=== PATIENT | female | born 1935 | race Caucasian/White ===

== ENCOUNTER 2018-05-03 07:07 | Inpatient (IN) | payer MEDICARE, OTHER ==
[~2018-05-03] VITALS: Ht 160 cm; Wt 56.4 kg
[2018-05-03] MEDS ORDERED: ALBUTEROL SULF 2.5 MG/0.5ML(0.5%) NEB SOLN NEB ONE ×2 (07:30→08:15)
[2018-05-03] MEDS ORDERED: IPRATROPIUM BROM 0.5 MG/2.5ML INH SOL NEB ONE ×2 (07:30→08:15)
[2018-05-03] MEDS ORDERED: methylPREDNISolone SOD SUCC 125 MG/2 ML VL IV ONE ×2 (07:30→08:15)
[2018-05-03 08:20] LABS: Basophils # (auto) 0 uL; Basophils % (auto) 0.1 % (0.0-2.0); Eosinophils # (auto) 0.1 uL; Eosinophils % (auto) 0.6 % (0.0-7.0); Hematocrit 32.8 % (36.0-46.0); Hemoglobin 10.6 g/dL (12.2-16.2); Lymphocytes # (auto) 0.8 uL; Lymphocytes % (auto) 4.3 % (10.0-50.0); Mean Corpuscular Hemoglobin 29.1 pg (28.0-32.0); Mean Corpuscular Hgb Conc. 32.4 g/dL (32.0-36.0); Mean Corpuscular Volume 89.7 fL (80.0-100.0); Monocytes % (auto) 5.7 % (0.0-12.0); Neutrophils # (auto) 15.9 uL; Neutrophils % (auto) 89.3 % (37.0-80.0); Platelet Count (auto) 392 10^3/uL (140-450); Red Blood Cells 3.66 10^6/uL (4.0-5.20); Red Cell Distribution Width 15.5 % (11.8-14.3); White Blood Cell 17.8 10^3/uL (4.4-10.8)
[2018-05-03] MEDS ORDERED: methylPREDNISolone SOD SUCC 125 MG/2 ML VL ONE (08:33)
[2018-05-03 08:43] LABS: Albumin 2.2 g/dL (3.4-5.0); BUN/Creatinine Ratio 16.1; Bilirubin, Total 0.5 mg/dL (0.2-1.0); Calcium 8.8 mg/dL (8.5-10.1); Potassium 3.4 mmol/L (3.5-5.1); Total Protein 6.8 g/dL (6.4-8.2)
[2018-05-03] MEDS ORDERED: IPRATROPIUM BROM 0.5 MG/2.5ML INH SOL ONE (09:00)
[2018-05-03] MEDS ORDERED: ALBUTEROL SULF 2.5 MG/0.5ML(0.5%) NEB SOLN ONE (09:00)
[2018-05-03] MEDS ORDERED: ENOXAPARIN SOD 60 MG/0.6 ML SYRINGE SC ONE (10:00)
[2018-05-03] MEDS ORDERED: cefTRIAXone 1GM/10ml IVPUSH 10 ML IV ONE (10:00)
[2018-05-03] MEDS ORDERED: ASPirin 81 mg TAB PO ONE (10:00)
[2018-05-03] MEDS ORDERED: AZITHROMYCIN 500MG/ 250ML 250 ML IV ONE (10:00)
[2018-05-03] MEDS ORDERED: MORPHINE SULF(PF) 0.5MG/ML 10ML VIAL IV PRN (12:00)
[2018-05-03] MEDS ORDERED: NITROGLYCERIN 0.4 MG SL TAB SL PRN (12:00)
[2018-05-03] MEDS ORDERED: VANCOMYCIN PER PHARMACY 0 MG IV SCH (12:00)
[2018-05-03] MEDS ORDERED: PIPERACILLIN-TAZOB 3.375GM 100 ML IV SCH (12:00)
[2018-05-03] MEDS: PANTOPRAZOLE 40 MG TAB PO SCH (12:23)
[2018-05-03] MEDS: IPRATROPIUM BROM 0.5 MG/2.5ML INH SOL NEB SCH ×2 (12:30→18:19)
[2018-05-03] MEDS: ALBUTEROL SULF 2.5 MG/0.5ML(0.5%) NEB SOLN NEB SCH ×2 (12:30→18:19)
[2018-05-03] MEDS: VANCOMYCIN 1GM/250ML 250 ML IV SCH (13:50)
[2018-05-03] MEDS: MEROPENEM 1gm/20ml IVPUSH 20 ML IV SCH ×2 (14:00→21:50)
[2018-05-03 21:14] VITALS: BP 103/84
[2018-05-03] MEDS: ATORVASTATIN 20 MG TAB PO SCH (22:00)
[2018-05-04] MEDS: IPRATROPIUM BROM 0.5 MG/2.5ML INH SOL NEB SCH ×4 (00:15→17:49)
[2018-05-04] MEDS: ALBUTEROL SULF 2.5 MG/0.5ML(0.5%) NEB SOLN NEB SCH ×4 (00:15→17:49)
[2018-05-04] MEDS: LORazepam 2MG/ML-1ML VIAL IV PRN ×2 (02:45→16:14)
[2018-05-04 05:10] LABS: Basophils # (auto) 0 uL; Basophils % (auto) 0.1 % (0.0-2.0); Eosinophils # (auto) 0 uL; Eosinophils % (auto) 0.1 % (0.0-7.0); Hematocrit 32.1 % (36.0-46.0); Hemoglobin 10.4 g/dL (12.2-16.2); Lymphocytes # (auto) 0.8 uL; Lymphocytes % (auto) 5.8 % (10.0-50.0); Mean Corpuscular Hemoglobin 29.1 pg (28.0-32.0); Mean Corpuscular Hgb Conc. 32.3 g/dL (32.0-36.0); Monocytes % (auto) 7.4 % (0.0-12.0); Neutrophils # (auto) 12.1 uL; Neutrophils % (auto) 86.6 % (37.0-80.0); Platelet Count (auto) 419 10^3/uL (140-450); Red Blood Cells 3.57 10^6/uL (4.0-5.20); Red Cell Distribution Width 15.4 % (11.8-14.3)
[2018-05-04 05:22] LABS: BUN/Creatinine Ratio 25.4; Calcium 8.7 mg/dL (8.5-10.1); Potassium 4.1 mmol/L (3.5-5.1)
[2018-05-04 05:26] LABS: INR 0.98 (0.9-1.15); Partial Thromboplastin Time 30.1 sec (23.78-33.04); Prothrombin Time 10.5 sec (9.27-12.13)
[2018-05-04] MEDS: MEROPENEM 1gm/20ml IVPUSH 20 ML IV SCH ×3 (06:20→21:31)
[2018-05-04] MEDS ORDERED: VANCOMYCIN 1GM/250ML 250 ML IV SCH (10:00)
[2018-05-04] MEDS: PANTOPRAZOLE 40 MG TAB PO SCH (10:09)
[2018-05-04] MEDS: ASPirin 81 mg TAB PO SCH (10:09)
[2018-05-04] MEDS: ENOXAPARIN SOD 40 MG/0.4 ML SYRINGE SC SCH (10:10)
[2018-05-04] MEDS: VANCOMYCIN 1GM/250ML 250 ML IV SCH (13:22)
[2018-05-04] MEDS ORDERED: PROMETHAZINE W/CODEINE 5 ML ORAL SYRUP PO PRN (14:45)
[2018-05-04] MEDS ORDERED: FUROSEMIDE 40 MG TAB PO ONE (14:45)
[2018-05-04] MEDS ORDERED: POTASSIUM CHL 20 Meq TABLET PO ONE (14:45)
[2018-05-04] MEDS ORDERED: ONDANSETRON HCL 4 MG/2 ML VIAL IV PRN ×2 (16:45→17:00)
[2018-05-04] MEDS ORDERED: ONDANSETRON HCL 4 MG/2 ML VIAL ONE (16:48)
[2018-05-04 17:00] VITALS: BP 156/94
[2018-05-04] MEDS ORDERED: methylPREDNISolone SOD SUCC 40 MG/ML VL IV ONE (18:45)
[2018-05-04 19:52] VITALS: BP 110/70
[2018-05-04] MEDS: ATORVASTATIN 20 MG TAB PO SCH (21:31)
[2018-05-04] MEDS: TEMAZEPAM 15 MG CAP PO PRN (22:48)
[2018-05-04] MEDS ORDERED: ONDA4TAB5 PO (23:00)
[2018-05-04] MEDS ORDERED: SUMA50TA2 PO (23:00)
[2018-05-04] MEDS ORDERED: VERA1TAB9 PO (23:00)
[2018-05-04] MEDS ORDERED: ALBU2TAB4 PO (23:00)
[2018-05-04] MEDS ORDERED: LACT10SO3 PO (23:00)
[2018-05-04] MEDS ORDERED: PRE5T PO (23:02)
[2018-05-04] MEDS ORDERED: BUP100T PO (23:02)
[2018-05-04] MEDS ORDERED: OXYB15TA12 PO (23:04)
[2018-05-04] MEDS ORDERED: ALEN70TA2 PO (23:04)
[2018-05-04] MEDS ORDERED: ATOR10TA PO (23:04)
[2018-05-04] MEDS ORDERED: FAM20T PO (23:04)
[2018-05-04] MEDS ORDERED: FLUT250M2 INH (23:04)
[2018-05-04] MEDS ORDERED: DIPH25CA66 PO (23:06)
[2018-05-04] MEDS ORDERED: BACL10TA PO (23:06)
[2018-05-05] VITALS (7 sets, daily range): BP systolic 87–109; BP diastolic 51–84
[2018-05-05] MEDS: methylPREDNISolone SOD SUCC 40 MG/ML VL IV SCH ×4 (00:05→22:07)
[2018-05-05 05:48] LABS: Basophils # (auto) 0 uL; Basophils % (auto) 0.1 % (0.0-2.0); Eosinophils # (auto) 0 uL; Hematocrit 33.3 % (36.0-46.0); Lymphocytes # (auto) 0.6 uL; Lymphocytes % (auto) 5.1 % (10.0-50.0); Mean Corpuscular Hemoglobin 29.5 pg (28.0-32.0); Mean Corpuscular Hgb Conc. 33.1 g/dL (32.0-36.0); Mean Corpuscular Volume 89.2 fL (80.0-100.0); Monocytes # (auto) 0.2 uL; Monocytes % (auto) 1.6 % (0.0-12.0); Neutrophils # (auto) 10.8 uL; Neutrophils % (auto) 93.2 % (37.0-80.0); Platelet Count (auto) 433 10^3/uL (140-450); Red Blood Cells 3.73 10^6/uL (4.0-5.20); Red Cell Distribution Width 15.6 % (11.8-14.3); White Blood Cell 11.6 10^3/uL (4.4-10.8)
[2018-05-05] MEDS: IPRATROPIUM BROM 0.5 MG/2.5ML INH SOL NEB SCH ×4 (05:54→19:24)
[2018-05-05] MEDS: ALBUTEROL SULF 2.5 MG/0.5ML(0.5%) NEB SOLN NEB SCH ×4 (05:55→19:24)
[2018-05-05] MEDS: MEROPENEM 1gm/20ml IVPUSH 20 ML IV SCH ×3 (06:01→22:07)
[2018-05-05 06:07] LABS: BUN/Creatinine Ratio 18.2; Calcium 8.9 mg/dL (8.5-10.1); Potassium 4.3 mmol/L (3.5-5.1)
[2018-05-05] MEDS: FUROSEMIDE 40 MG TAB PO SCH ×2 (10:00→10:59)
[2018-05-05] MEDS: ENOXAPARIN SOD 40 MG/0.4 ML SYRINGE SC SCH (10:09)
[2018-05-05] MEDS: PANTOPRAZOLE 40 MG TAB PO SCH (10:09)
[2018-05-05] MEDS: ASPirin 81 mg TAB PO SCH (10:09)
[2018-05-05] MEDS: POTASSIUM CHL 20 Meq TABLET PO SCH (10:10)
[2018-05-05] MEDS: VANCOMYCIN 1GM/250ML 250 ML IV SCH (13:24)
[2018-05-05] MEDS: buPROPion HCL 100 MG TAB PO SCH (18:48)
[2018-05-05] MEDS: ATORVASTATIN 20 MG TAB PO SCH (22:08)
[2018-05-05] MEDS: TEMAZEPAM 15 MG CAP PO PRN (22:09)
[2018-05-06 05:00] VITALS: BP 132/72
[2018-05-06 06:07] LABS: Basophils # (auto) 0 uL; Basophils % (auto) 0.1 % (0.0-2.0); Eosinophils # (auto) 0 uL; Hematocrit 35.2 % (36.0-46.0); Hemoglobin 11.5 g/dL (12.2-16.2); Lymphocytes # (auto) 0.7 uL; Lymphocytes % (auto) 4.5 % (10.0-50.0); Mean Corpuscular Hemoglobin 29.2 pg (28.0-32.0); Mean Corpuscular Hgb Conc. 32.6 g/dL (32.0-36.0); Mean Corpuscular Volume 89.5 fL (80.0-100.0); Monocytes # (auto) 0.5 uL; Monocytes % (auto) 3.1 % (0.0-12.0); Neutrophils # (auto) 13.8 uL; Neutrophils % (auto) 92.3 % (37.0-80.0); Platelet Count (auto) 436 10^3/uL (140-450); Red Blood Cells 3.93 10^6/uL (4.0-5.20); Red Cell Distribution Width 15.5 % (11.8-14.3)
[2018-05-06 06:15] LABS: BUN/Creatinine Ratio 35.8; Calcium 9.1 mg/dL (8.5-10.1)
[2018-05-06] MEDS: buPROPion HCL 100 MG TAB PO SCH ×2 (06:22→18:53)
[2018-05-06] MEDS: MEROPENEM 1gm/20ml IVPUSH 20 ML IV SCH (06:22)
[2018-05-06] MEDS: methylPREDNISolone SOD SUCC 40 MG/ML VL IV SCH ×2 (06:22→22:18)
[2018-05-06] MEDS: ALBUTEROL SULF 2.5 MG/0.5ML(0.5%) NEB SOLN NEB SCH ×4 (06:50→19:00)
[2018-05-06] MEDS: IPRATROPIUM BROM 0.5 MG/2.5ML INH SOL NEB SCH ×4 (06:51→19:00)
[2018-05-06 09:00] VITALS: BP 113/78
[2018-05-06] MEDS: ENOXAPARIN SOD 40 MG/0.4 ML SYRINGE SC SCH (09:39)
[2018-05-06] MEDS: PANTOPRAZOLE 40 MG TAB PO SCH (09:41)
[2018-05-06] MEDS: ASPirin 81 mg TAB PO SCH (09:41)
[2018-05-06] MEDS: POTASSIUM CHL 20 Meq TABLET PO SCH (09:41)
[2018-05-06] MEDS: FUROSEMIDE 40 MG TAB PO SCH (09:41)
[2018-05-06] MEDS: VANCOMYCIN 1GM/250ML 250 ML IV SCH (12:44)
[2018-05-06 13:00] VITALS: BP 126/82
[2018-05-06] MEDS: cefTAZidime 1 GM in SODIUM CHL 0.9% 50 ML IV SCH ×2 (15:20→22:18)
[2018-05-06] MEDS ORDERED: SENNA 8.6 MG TAB PO ONE (15:30)
[2018-05-06 17:00] VITALS: BP 112/85
[2018-05-06 21:36] VITALS: BP 118/85
[2018-05-06] MEDS: ATORVASTATIN 20 MG TAB PO SCH (22:18)
[2018-05-06] MEDS: TEMAZEPAM 15 MG CAP PO PRN (22:31)
[2018-05-07] MEDS: VANCOMYCIN 1GM/250ML 250 ML IV SCH ×2 (01:30→12:45)
[2018-05-07 01:31] VITALS: BP 118/85
[2018-05-07 04:46] VITALS: BP 106/69
[2018-05-07 05:50] LABS: Basophils # (auto) 0 uL; Eosinophils # (auto) 0 uL; Hematocrit 33.3 % (36.0-46.0); Hemoglobin 10.7 g/dL (12.2-16.2); Lymphocytes # (auto) 0.7 uL; Lymphocytes % (auto) 5.2 % (10.0-50.0); Mean Corpuscular Hemoglobin 29.2 pg (28.0-32.0); Mean Corpuscular Hgb Conc. 32.1 g/dL (32.0-36.0); Mean Corpuscular Volume 90.8 fL (80.0-100.0); Monocytes # (auto) 0.4 uL; Monocytes % (auto) 2.8 % (0.0-12.0); Neutrophils # (auto) 11.9 uL; Platelet Count (auto) 442 10^3/uL (140-450); Red Blood Cells 3.67 10^6/uL (4.0-5.20); Red Cell Distribution Width 15.7 % (11.8-14.3)
[2018-05-07 06:06] LABS: Calcium 8.7 mg/dL (8.5-10.1); Potassium 4.5 mmol/L (3.5-5.1)
[2018-05-07] MEDS: buPROPion HCL 100 MG TAB PO SCH ×2 (06:31→18:16)
[2018-05-07] MEDS: cefTAZidime 1 GM in SODIUM CHL 0.9% 50 ML IV SCH ×3 (06:31→21:53)
[2018-05-07] MEDS: IPRATROPIUM BROM 0.5 MG/2.5ML INH SOL NEB SCH ×3 (07:01→11:48)
[2018-05-07] MEDS: ALBUTEROL SULF 2.5 MG/0.5ML(0.5%) NEB SOLN NEB SCH ×3 (07:01→11:48)
[2018-05-07 09:00] VITALS: BP 133/49
[2018-05-07] MEDS: methylPREDNISolone SOD SUCC 40 MG/ML VL IV SCH ×2 (09:25→21:53)
[2018-05-07] MEDS: POTASSIUM CHL 20 Meq TABLET PO SCH (09:26)
[2018-05-07] MEDS: FUROSEMIDE 40 MG TAB PO SCH (09:26)
[2018-05-07] MEDS: ASPirin 81 mg TAB PO SCH (09:26)
[2018-05-07] MEDS: ENOXAPARIN SOD 40 MG/0.4 ML SYRINGE SC SCH (09:26)
[2018-05-07] MEDS: PANTOPRAZOLE 40 MG TAB PO SCH (09:26)
[2018-05-07 13:00] VITALS: BP 114/91
[2018-05-07 17:00] VITALS: BP 110/75
[2018-05-07 21:47] VITALS: BP 123/81
[2018-05-07] MEDS: ATORVASTATIN 20 MG TAB PO SCH (21:54)
[2018-05-07] MEDS: TEMAZEPAM 15 MG CAP PO PRN (22:59)
[2018-05-08] MEDS: IPRATROPIUM BROM 0.5 MG/2.5ML INH SOL NEB SCH ×6 (00:32→23:34)
[2018-05-08] MEDS: ALBUTEROL SULF 2.5 MG/0.5ML(0.5%) NEB SOLN NEB SCH ×6 (00:32→23:34)
[2018-05-08] MEDS: VANCOMYCIN 1GM/250ML 250 ML IV SCH (01:00)
[2018-05-08 05:12] VITALS: BP 109/68
[2018-05-08] MEDS: buPROPion HCL 100 MG TAB PO SCH ×2 (06:21→18:18)
[2018-05-08] MEDS: cefTAZidime 1 GM in SODIUM CHL 0.9% 50 ML IV SCH ×3 (06:21→23:11)
[2018-05-08 08:58] VITALS: BP 118/75
[2018-05-08] MEDS: methylPREDNISolone SOD SUCC 40 MG/ML VL IV SCH ×2 (09:22→23:12)
[2018-05-08] MEDS: PANTOPRAZOLE 40 MG TAB PO SCH (09:23)
[2018-05-08] MEDS: ASPirin 81 mg TAB PO SCH (09:23)
[2018-05-08] MEDS: FUROSEMIDE 40 MG TAB PO SCH (09:23)
[2018-05-08] MEDS: POTASSIUM CHL 20 Meq TABLET PO SCH (09:23)
[2018-05-08] MEDS: ENOXAPARIN SOD 40 MG/0.4 ML SYRINGE SC SCH (09:57)
[2018-05-08 13:19] VITALS: BP 133/77
[2018-05-08] MEDS ORDERED: VANCOMYCIN 1GM/250ML 250 ML IV SCH (16:00)
[2018-05-08 17:14] VITALS: BP 117/83
[2018-05-08 21:55] VITALS: BP 124/80
[2018-05-08] MEDS ORDERED: CALCIUM CARB 500 MG CHEW TAB PO PRN (22:30)
[2018-05-08] MEDS ORDERED: ALBUTEROL SULF 2.5 MG/0.5ML(0.5%) NEB SOLN NEB PRN (22:30)
[2018-05-08] MEDS: ATORVASTATIN 20 MG TAB PO SCH (23:12)
[2018-05-08] MEDS: TEMAZEPAM 15 MG CAP PO PRN (23:12)
[2018-05-09 05:25] VITALS: BP 98/68
[2018-05-09 05:49] LABS: Basophils # (auto) 0 uL; Basophils % (auto) 0.1 % (0.0-2.0); Eosinophils # (auto) 0 uL; Eosinophils % (auto) 0.1 % (0.0-7.0); Hematocrit 35.3 % (36.0-46.0); Hemoglobin 11.3 g/dL (12.2-16.2); Lymphocytes # (auto) 0.8 uL; Lymphocytes % (auto) 5.1 % (10.0-50.0); Mean Corpuscular Hemoglobin 28.5 pg (28.0-32.0); Mean Corpuscular Hgb Conc. 31.9 g/dL (32.0-36.0); Mean Corpuscular Volume 89.4 fL (80.0-100.0); Monocytes # (auto) 0.4 uL; Monocytes % (auto) 2.6 % (0.0-12.0); Neutrophils # (auto) 14.7 uL; Neutrophils % (auto) 92.1 % (37.0-80.0); Platelet Count (auto) 445 10^3/uL (140-450); Red Blood Cells 3.95 10^6/uL (4.0-5.20); Red Cell Distribution Width 15.8 % (11.8-14.3); White Blood Cell 15.9 10^3/uL (4.4-10.8)
[2018-05-09] MEDS: IPRATROPIUM BROM 0.5 MG/2.5ML INH SOL NEB SCH ×5 (06:02→18:49)
[2018-05-09] MEDS: ALBUTEROL SULF 2.5 MG/0.5ML(0.5%) NEB SOLN NEB SCH ×5 (06:03→18:49)
[2018-05-09] MEDS: cefTAZidime 1 GM in SODIUM CHL 0.9% 50 ML IV SCH (06:33)
[2018-05-09] MEDS: buPROPion HCL 100 MG TAB PO SCH ×2 (06:33→22:33)
[2018-05-09 06:35] LABS: BUN/Creatinine Ratio 36.5; Calcium 8.8 mg/dL (8.5-10.1); Potassium 4.3 mmol/L (3.5-5.1)
[2018-05-09 08:48] VITALS: BP 122/66
[2018-05-09] MEDS: ASPirin 81 mg TAB PO SCH (10:10)
[2018-05-09] MEDS: methylPREDNISolone SOD SUCC 40 MG/ML VL IV SCH (10:10)
[2018-05-09] MEDS: PANTOPRAZOLE 40 MG TAB PO SCH (10:10)
[2018-05-09] MEDS: FUROSEMIDE 40 MG TAB PO SCH (10:10)
[2018-05-09] MEDS: POTASSIUM CHL 20 Meq TABLET PO SCH (10:11)
[2018-05-09] MEDS: ENOXAPARIN SOD 40 MG/0.4 ML SYRINGE SC SCH (10:11)
[2018-05-09] MEDS ORDERED: CIPROFLOXACIN HCL 500 MG TAB PO SCH (12:15)
[2018-05-09 13:00] VITALS: BP 129/88
[2018-05-09] MEDS ORDERED: VANCOMYCIN 1GM/250ML 250 ML IV SCH (16:00)
[2018-05-09] MEDS ORDERED: VANCOMYCIN 750 MG in D5W 5% 250 ML IV SCH (16:00)
[2018-05-09 17:16] VITALS: BP 112/80
[2018-05-09 21:38] VITALS: BP 139/93
[2018-05-09] MEDS: TEMAZEPAM 15 MG CAP PO PRN (22:34)
[2018-05-09] MEDS: ATORVASTATIN 20 MG TAB PO SCH (22:34)
[2018-05-10 02:49] VITALS: BP 139/93
[2018-05-10 04:59] VITALS: BP 134/75
[2018-05-10] MEDS: ALBUTEROL SULF 2.5 MG/0.5ML(0.5%) NEB SOLN NEB SCH ×2 (06:30→14:03)
[2018-05-10] MEDS: IPRATROPIUM BROM 0.5 MG/2.5ML INH SOL NEB SCH ×2 (06:30→14:03)
[2018-05-10] MEDS: buPROPion HCL 100 MG TAB PO SCH (06:48)
[2018-05-10 07:33] LABS: Hemoglobin 11.5 g/dL (12.2-16.2); Red Cell Distribution Width 15.9 % (11.8-14.3)
[2018-05-10 07:37] LABS: Hematocrit 35.1 % (36.0-46.0); Mean Corpuscular Hemoglobin 29.3 pg (28.0-32.0); Mean Corpuscular Hgb Conc. 32.7 g/dL (32.0-36.0); Mean Corpuscular Volume 89.5 fL (80.0-100.0); Platelet Count (auto) 462 10^3/uL (140-450); Red Blood Cells 3.92 10^6/uL (4.0-5.20); White Blood Cell 15.8 10^3/uL (4.4-10.8)
[2018-05-10 07:48] LABS: Band Neutrophils % (manual) 0; Basophils % (manual) 0 (0.0-2.0); Blast Cells 0; Metamyelocytes % 0; Myelocytes % 0; Promyelocytes % 0; Reactive Lymphocytes 0
[2018-05-10 07:53] LABS: Albumin 2.4 g/dL (3.4-5.0); BUN/Creatinine Ratio 41.5; Bilirubin, Total 0.3 mg/dL (0.2-1.0); Calcium 9.1 mg/dL (8.5-10.1); Potassium 3.2 mmol/L (3.5-5.1); Total Protein 6.3 g/dL (6.4-8.2)
[2018-05-10 08:32] VITALS: BP 105/73
[2018-05-10 08:52] LABS: Eosinophils % (manual) 2 (0-7); Lymphocytes % (manual) 17 (10.0-50.0); Monocytes % (manual) 11 (0-12)
[2018-05-10] MEDS: PANTOPRAZOLE 40 MG TAB PO SCH (09:33)
[2018-05-10] MEDS: POTASSIUM CHL 20 Meq TABLET PO SCH (09:33)
[2018-05-10] MEDS: FUROSEMIDE 40 MG TAB PO SCH (09:34)
[2018-05-10] MEDS: ASPirin 81 mg TAB PO SCH (09:42)
[2018-05-10] MEDS ORDERED: predniSONE 20 MG TAB PO SCH (10:00)
[2018-05-10] MEDS: ENOXAPARIN SOD 40 MG/0.4 ML SYRINGE SC SCH (12:08)
[2018-05-10 13:01] VITALS: BP 123/88
[2018-05-10] MEDS ORDERED: PRO-STAT 64 30ML PO SCH (18:00)
== END 2018-05-10 15:38 | disposition hospice, home (50) | DRG 871 ==
LOC: ER 07:07 → EDBD 07:07 → TELE 07:08 → DOU IN ICU 05-04 17:17 → TELE-WESTW 05-05 17:40
PROVIDERS: ADMIT Internal Medicine; ATTEND Internal Medicine
DX: A41.9 Sepsis, unspecified organism (principal); I21.4 Non-ST elevation (NSTEMI) myocardial infarction; J18.9 Pneumonia, unspecified organism; E43 Unspecified severe protein-calorie malnutrition; J96.20 Acute and chronic respiratory failure, unspecified whether with hypoxia or hypercapnia; J47.0 Bronchiectasis with acute lower respiratory infection; E87.6 Hypokalemia; I44.7 Left bundle-branch block, unspecified; J84.10 Pulmonary fibrosis, unspecified; Z66 Do not resuscitate; F41.9 Anxiety disorder, unspecified; G43.909 Migraine, unspecified, not intractable, without status migrainosus; Z93.3 Colostomy status; Z79.899 Other long term (current) drug therapy; Z91.041 Radiographic dye allergy status; Z79.82 Long term (current) use of aspirin; Z68.22 Body mass index [BMI] 22.0-22.9, adult
CPT/HCPCS: 36415; 36600; 71045; 71250; 80048; 80053; 80202; 82565; 82805; 83605; 83615; 83880; 84484; 85007; 85025; 85027; 85610; 85730; 87040; 87077; 87081; 87186; 93005; 93306; 94640; 94761; 96365; 96375; 96379; J2405; J2543

== ENCOUNTER 2018-05-15 00:01 | Emergency (ER) | payer OTHER ==
[~2018-05-15] VITALS: Ht 172.7 cm; Wt 65.8 kg
[~2018-05-15 00:01] MED LIST: ALBU2TAB4 PO; ALEN70TA2 PO; ATOR10TA PO; BACL10TA PO; BUP100T PO; DIPH25CA66 PO; FAM20T PO; FLUT250M2 INH; LACT10SO3 PO; ONDA4TAB5 PO; OXYB15TA12 PO; PRE5T PO; SUMA50TA2 PO; VERA1TAB9 PO
[2018-05-15 01:21] LABS: Basophils # (auto) 0 uL; Basophils % (auto) 0.2 % (0.0-2.0); Eosinophils # (auto) 0.2 uL; Eosinophils % (auto) 1.9 % (0.0-7.0); Hematocrit 37.3 % (36.0-46.0); Lymphocytes # (auto) 1.5 uL; Lymphocytes % (auto) 11.7 % (10.0-50.0); Mean Corpuscular Hemoglobin 28.6 pg (28.0-32.0); Mean Corpuscular Hgb Conc. 32.1 g/dL (32.0-36.0); Monocytes # (auto) 1.2 uL; Monocytes % (auto) 9.2 % (0.0-12.0); Neutrophils # (auto) 9.7 uL; Nucleated Red Blood Cells % 0.1 %; Platelet Count (auto) 380 10^3/uL (140-450); Red Blood Cells 4.19 10^6/uL (4.0-5.20); Red Cell Distribution Width 15.8 % (11.8-14.3); White Blood Cell 12.6 10^3/uL (4.4-10.8)
[2018-05-15 01:32] LABS: Albumin 2.7 g/dL (3.4-5.0); Calcium 9.3 mg/dL (8.5-10.1)
[2018-05-15 01:36] LABS: Potassium 2.9 mmol/L (3.5-5.1)
[2018-05-15 01:37] LABS: Bilirubin, Total 0.5 mg/dL (0.2-1.0); Total Protein 6.6 g/dL (6.4-8.2)
[2018-05-15 01:45] LABS: BUN/Creatinine Ratio 24.4
[2018-05-15] MEDS ORDERED: POTASSIUM CHL 10% (20 MEQ/15ML) 15ml ORAL SOLN PO ONE (02:00)
[2018-05-15] MEDS: SODIUM CHLORIDE 0.9% 1,000 ML IV ONE ×2 (02:30→03:21)
[2018-05-15] MEDS ORDERED: ASPirin 81 mg TAB PO ONE (02:30)
[2018-05-15 03:37] LABS: INR 0.98 (0.9-1.15); Partial Thromboplastin Time 23.5 sec (23.78-33.04); Prothrombin Time 10.5 sec (9.27-12.13)
[2018-05-15 06:05] VITALS: BP 132/78
== END 2018-05-15 03:47 | disposition home or self-care (01) ==
LOC: ER 00:01 → EDBD 00:01 → ER 03:47
DX: R07.9 Chest pain, unspecified (principal); J84.10 Pulmonary fibrosis, unspecified; Z88.0 Allergy status to penicillin
CPT/HCPCS: 36415; 71045; 80053; 83735; 83880; 84484; 85025; 85379; 85610; 85730; 93005

== ENCOUNTER 2018-10-15 12:40 | Emergency (ER) | payer OTHER ==
[~2018-10-15] VITALS: Ht 160 cm; Wt 52.2 kg
[2018-10-15 12:53] VITALS: BP 131/92
[2018-10-15 13:38] LABS: Hematocrit 38.2 % (36.0-46.0); Hemoglobin 12.5 g/dL (12.2-16.2); Mean Corpuscular Hemoglobin 30.9 pg (28.0-32.0); Mean Corpuscular Hgb Conc. 32.8 g/dL (32.0-36.0); Mean Corpuscular Volume 94.1 fL (80.0-100.0); Platelet Count (auto) 297 10^3/uL (140-450); Red Blood Cells 4.06 10^6/uL (4.0-5.20); Red Cell Distribution Width 14.3 % (11.8-14.3); White Blood Cell 11.5 10^3/uL (4.4-10.8)
[2018-10-15 13:42] LABS: Basophils % (manual) 0 (0.0-2.0); Blast Cells 0; Eosinophils % (manual) 0 (0-7); Metamyelocytes % 0; Myelocytes % 0; Promyelocytes % 0; Reactive Lymphocytes 0
[2018-10-15 13:49] LABS: Alanine Aminotransferase 24 U/L (13-56); Albumin 3.5 g/dL (3.4-5.0); Anion Gap 3 (5-15); Aspartate Aminotransferase 21 U/L (15-37); Blood Urea Nitrogen 22 mg/dL (7-18); Calcium 9.2 mg/dL (8.5-10.1); Carbon Dioxide 32 mmol/L (21-32); Chloride 106 mmol/L (98-107); Glucose 128 mg/dL (74-106); Magnesium 2.4 mg/dL (1.6-2.6); Potassium 3.8 mmol/L (3.5-5.1); Sodium 141 mmol/L (136-145)
[2018-10-15 13:50] LABS: INR 0.9 (0.9-1.15); Partial Thromboplastin Time 23.3 sec (23.78-33.04); Prothrombin Time 9.7 sec (9.27-12.13)
[2018-10-15 13:55] LABS: Alkaline Phosphatase 49 U/L (45-117); BUN/Creatinine Ratio 20.2; Bilirubin, Total 0.3 mg/dL (0.2-1.0); GFR African American 62 mL/min; GFR Non-African American 51 mL/min; Total Protein 7.2 g/dL (6.4-8.2)
[2018-10-15 14:58] LABS: Band Neutrophils % (manual) 3; Lymphocytes % (manual) 1 (10.0-50.0); Monocytes % (manual) 1 (0-12)
[2018-10-15 15:40] LABS: Urine Bacteria NONE SEEN /hpf (None Seen); Urine Blood Negative /uL (Negative); Urine Hyaline Cast FEW /lpf (0 - 2); Urine Specific Gravity 1.011 (1.001-1.035); Urine WBC <1 /hpf (0 - 5)
== END 2018-10-15 16:53 | disposition home or self-care (01) ==
LOC: EDBD 12:40 → ER 12:43
DX: J84.9 Interstitial pulmonary disease, unspecified (principal); I12.9 Hypertensive chronic kidney disease with stage 1 through stage 4 chronic kidney disease, or unspecified chronic kidney disease; E11.22 Type 2 diabetes mellitus with diabetic chronic kidney disease; N18.3 Chronic kidney disease, stage 3 (moderate); E78.5 Hyperlipidemia, unspecified; Z79.899 Other long term (current) drug therapy; Z88.0 Allergy status to penicillin; Z91.041 Radiographic dye allergy status
CPT/HCPCS: 36415; 71045; 80053; 81001; 83735; 83880; 84443; 84484; 85007; 85027; 85610; 85730; 93005; 94761

== ENCOUNTER 2020-04-15 15:12 | Emergency (ER) | payer OTHER ==
[~2020-04-15] VITALS: Ht 160 cm; Wt 56.7 kg
[~2020-04-15 15:12] MED LIST changes: +ONDA-144 PO; -ONDA4TAB5 PO; +VERA120T3 PO; -VERA1TAB9 PO
[2020-04-15] MEDS ORDERED: SODIUM CHLORIDE 0.9% 1,000 ML IV ONE (15:30)
[2020-04-15 15:53] VITALS: BP 121/95
[2020-04-15] MEDS ORDERED: DOCUSATE SOD 100 MG CAP PO ONE (17:00)
== END 2020-04-15 17:18 | disposition home or self-care (01) ==
LOC: ER 15:12
DX: J18.9 Pneumonia, unspecified organism (principal); K59.00 Constipation, unspecified; R10.84 Generalized abdominal pain; E78.5 Hyperlipidemia, unspecified; I10 Essential (primary) hypertension; Z88.0 Allergy status to penicillin
CPT/HCPCS: 71045; 74176

== ENCOUNTER 2020-09-14 20:22 | Emergency (ER) | payer OTHER ==
[~2020-09-14] VITALS: Ht 157.5 cm; Wt 56.7 kg
[~2020-09-14 20:22] MED LIST changes: -FAM20T PO; +FAMO20TA10 PO
[2020-09-14 22:42] LABS: Urine Bacteria NONE SEEN /hpf (None Seen); Urine Blood Negative /uL (Negative); Urine WBC 4 /hpf (0 - 5)
[2020-09-14 23:04] LABS: Alcohol, Urine < 3.0 mg/dL (0-10); Amphetamine Screen, Urine NEGATIVE (NEGATIVE); Barbiturate Scree,Urine NEGATIVE (NEGATIVE); Benzodiazephine Screen, Urine POSITIVE (NEGATIVE); Cannabinoid Screen, Urine NEGATIVE (NEGATIVE); Cocaine Screen, Urine NEGATIVE (NEGATIVE); Opiate Scree,Urine POSITIVE (NEGATIVE); Phencyclidine Screen, Urine NEGATIVE (NEGATIVE)
[2020-09-14 23:49] LABS: Basophils # (auto) 0 10 ^3/uL (0-0.2); Basophils % (auto) 0.2 % (0.0-2.0); Eosinophils # (auto) 0.1 10 ^3/uL (0-0.8); Eosinophils % (auto) 1.1 % (0.0-7.0); Hematocrit 37.9 % (36.0-46.0); Hemoglobin 12.4 g/dL (12.2-16.2); Lymphocytes # (auto) 1.1 10 ^3/uL (0.4-5.4); Lymphocytes % (auto) 9.4 % (10.0-50.0); Mean Corpuscular Hemoglobin 30.2 pg (28.0-32.0); Mean Corpuscular Hgb Conc. 32.7 g/dL (32.0-36.0); Mean Corpuscular Volume 92.3 fL (80.0-100.0); Monocytes # (auto) 1.1 10 ^3/uL (0-1.3); Monocytes % (auto) 9.1 % (0.0-12.0); Neutrophils # (auto) 9.4 10 ^3/uL (1.6-8.6); Neutrophils % (auto) 80.2 % (37.0-80.0); Platelet Count (auto) 283 10^3/uL (140-450); Red Cell Distribution Width 12.7 % (11.8-14.3); White Blood Cell 11.7 10^3/uL (4.4-10.8)
[2020-09-15 00:11] LABS: Alanine Aminotransferase 17 U/L (13-56); Albumin 2.7 g/dL (3.4-5.0); Anion Gap 6 (5-15); Aspartate Aminotransferase 23 U/L (15-37); BUN/Creatinine Ratio 18.6; Blood Alcohol < 3.0 mg/dL (0-5); Blood Urea Nitrogen 16 mg/dL (7-18); Calcium 9.5 mg/dL (8.5-10.1); Carbon Dioxide 31 mmol/L (21-32); Chloride 103 mmol/L (98-107); GFR African American 81 mL/min; GFR Non-African American 67 mL/min; Glucose 77 mg/dL (74-106); Potassium 3.8 mmol/L (3.5-5.1); Sodium 140 mmol/L (136-145)
[2020-09-15] MEDS ORDERED: ONDANSETRON HCL 4 MG/2 ML VIAL IV ONE (00:15)
[2020-09-15] MEDS ORDERED: MORPHINE SULF INJ 2 MG/ML SYRINGE 1ML IV ONE (00:15)
[2020-09-15 00:16] LABS: Alkaline Phosphatase 63 U/L (45-117); Bilirubin, Total 0.8 mg/dL (0.2-1.0); Total Protein 7.2 g/dL (6.4-8.2)
[2020-09-15 00:56] LABS: Amylase 33 U/L (25-115); Lipase 56 U/L (73-393)
[2020-09-15 05:45] VITALS: BP 112/62
== END 2020-09-15 03:07 | disposition home or self-care (01) ==
LOC: EDBD 20:22 → ER 20:22
DX: R41.82 Altered mental status, unspecified (principal); G92 Toxic encephalopathy; F19.10 Other psychoactive substance abuse, uncomplicated; E78.5 Hyperlipidemia, unspecified; I10 Essential (primary) hypertension; Z93.3 Colostomy status; Z88.6 Allergy status to analgesic agent; Z88.0 Allergy status to penicillin; Z79.899 Other long term (current) drug therapy; Z90.89 Acquired absence of other organs
CPT/HCPCS: 36415; 71045; 74176; 80053; 80307; 80320; 81001; 82150; 83605; 83690; 84484; 85025; 93005; 96374; 96375; 99285; J2270; J2405